=== PATIENT | female | born 1960 | race African-American/Black ===

== ENCOUNTER → 2016-07-19 | Outpatient (CLI) | payer SELFPAY ==
[~2016-07-19] MED LIST: Combivent IH; ERYTHROMYC1 APPLICAT RIGHT EYE; FLEXERIL5 MG PO; HYDROCODON-ACE1 EAC7 PO; MOTRIN600 MG PO; NOHOMEMEDS; Prevacid PO; Questran PO; Symbicort 160-4.5 mc IH
== END | disposition home or self-care (01) ==
LOC: NUC 09:11
DX: R94.31 Abnormal electrocardiogram [ECG] [EKG] (principal); R07.9 Chest pain, unspecified
CPT/HCPCS: 78452; 78999; 93017; A9500

== ENCOUNTER → 2016-09-13 | Outpatient (CLI) | payer SELFPAY | END | disposition home or self-care (01) | LOC: RAD 11:42 | DX: S63.102A Unspecified subluxation of left thumb, initial encounter (principal); M19.042 Primary osteoarthritis, left hand | CPT/HCPCS: 73130 ==

== ENCOUNTER → 2016-12-04 | Outpatient (CLI) | payer SELFPAY | END | disposition home or self-care (01) | LOC: RAD 12:31 | DX: J98.4 Other disorders of lung (principal) | CPT/HCPCS: 71250 ==

== ENCOUNTER 2017-04-08 19:59 | Emergency (ER) | payer OTHER ==
[~2017-04-08] VITALS: Ht 160 cm; Wt 55.0 kg
[2017-04-08 21:42] LABS: EOSINOPHIL (%) 3.9 % (0-5); EOSINOPHIL COUNT 0.2 K/uL (0-0.3); HEMATOCRIT 38.8 % (36.0-46.0); IMMATURE GRANULOCYTE (%) 0.2 % (0.0-0.7); INSTRUMENT ABS NEUTROPHIL CT 2.6 K/uL; MCH 31.4 PG (29.0-34.0); MCV 92.2 FL (83-99); MEAN PLAT.VOLUME 9.1 uM^3 (9.5-12.4); MONOCYTE (%) 13.2 % (3-12); MONOCYTE COUNT 0.6 K/uL (0-0.8); NEUTROPHIL (%) 59.1 % (45-76); NEUTROPHIL COUNT 2.6 K/uL (1.8-6.4); PLATELET COUNT 221 K/uL (156-360); RBC DIS.WIDTH-CV 12.6 % (11.8-14.6); RBC DIS.WIDTH-SD 43.1 % (39-53); RED BLOOD COUNT 4.21 M/uL (3.80-5.20); WHITE BLOOD COUNT 4.3 K/uL (4.1-10.2)
[2017-04-08 22:00] LABS: ALKALINE PHOSPHATASE 61 IU/L (3-129); ANION GAP 9 MEQ/L (2-14); CHLORIDE 108 MEQ/L (99-109); GFR ESTIMATE (CALCULATED) > 59 mL/min/; GLUCOSE 104 mg/dL (70-99); POTASSIUM 3.6 MEQ/L (3.7-5.4); SAMPLE HEMOLYSIS CHECK 0; SAMPLE ICTERIC CHECK 0; SAMPLE LIPEMIA CHECK 0; SODIUM 143 MEQ/L (136-147); TOTAL BILIRUBIN 0.3 MG/DL (0.0-1.0); UREA NITROGEN (BUN) 18 mg/dL (9-23)
[2017-04-08] MEDS ORDERED: PREDNISONE20 MG PO (23:57)
[2017-04-09 00:12] VITALS: BP 114/80
[2017-04-09 00:34] LABS: ADD MIUA? YES; BILIRUBIN NEGATIVE; BLOOD NEGATIVE; COLOR YELLOW ((YELLOW)); GLUCOSE (STRIP) NEGATIVE; KETONES NEGATIVE; LEUKOCYTES MODERATE; NITRITE NEGATIVE; PROTEIN (STRIP) NEGATIVE; UROBILINOGEN 0.2 MG/DL (0.2-1.0)
[2017-04-09 00:39] LABS: BACTERIA NONE SEEN /HPF; EPITHELIAL CELLS 1+ /HPF; MUCUS TRACE /LPF; RED BLOOD CELLS 0-5 /HPF (0-5); UCUL ADDED? NO; WHITE BLOOD CELLS 0-5 /HPF (0-5)
[2017-04-09 00:52] LABS: SPECIFIC GRAVITY 1.065 (1.000-1.030)
== END 2017-04-09 00:15 | disposition home or self-care (01) ==
LOC: EME 19:59
PROVIDERS: Emergency Medicine Emergency Medical Services
DX: M51.26 Other intervertebral disc displacement, lumbar region (principal); M54.16 Radiculopathy, lumbar region; R10.84 Generalized abdominal pain; J44.9 Chronic obstructive pulmonary disease, unspecified; K21.9 Gastro-esophageal reflux disease without esophagitis; F17.200 Nicotine dependence, unspecified, uncomplicated
CPT/HCPCS: 72131; 74177; 80053; 81003; 85025; 99281; 99285; J2270

== ENCOUNTER 2017-11-02 16:23 | Emergency (ER) | payer OTHER ==
[~2017-11-02] VITALS: Ht 157.5 cm; Wt 56.1 kg
[~2017-11-02 16:23] MED LIST changes: +PREDNISONE20 MG PO
[2017-11-02 17:40] LABS: HEMATOCRIT 38.2 % (36.0-46.0); HEMOGLOBIN 13.1 G/DL (11.9-15.5); MCHC 34.3 G/DL (30.0-36.0); MCV 93.2 FL (83-99); PLATELET COUNT 236 K/uL (156-360); RBC DIS.WIDTH-CV 12.6 % (11.8-14.6); RBC DIS.WIDTH-SD 43.2 % (39-53); WHITE BLOOD COUNT 5.1 K/uL (4.1-10.2)
[2017-11-02 17:54] LABS: CHLORIDE 110 mEq/L (99-109); POTASSIUM 3.8 mEq/L (3.7-5.4); SODIUM 143 mEq/L (136-147)
[2017-11-02 17:56] LABS: GLUCOSE 91 mg/dL (70-99); TOTAL PROTEIN 6.9 g/dL (6.4-8.3)
[2017-11-02 17:58] LABS: TOTAL BILIRUBIN 0.3 mg/dL (0.0-1.0)
[2017-11-02 18:00] LABS: ALKALINE PHOSPHATASE 89 IU/L (3-129); CREATININE 0.8 mg/dL (0.6-1.3); GFR ESTIMATE (CALCULATED) > 59 mL/min/
[2017-11-02 18:01] LABS: TROP-I INTERPRETATION NEGATIVE; TROPONIN-I < 0.01 ng/mL (0.0-0.30); UREA NITROGEN (BUN) 8 mg/dL (9-23)
[2017-11-02 18:02] LABS: AST (GOT) 19 IU/L (2-34)
[2017-11-02 18:03] LABS: ALT (GPT) 17 IU/L (3-49); LIPASE 20 U/L (1.0-51.0)
[2017-11-02] MEDS ORDERED: MOBIC7.5 MG PO (18:23)
[2017-11-02] MEDS ORDERED: FLEXERIL10 MG PO (18:23)
[2017-11-02 18:40] VITALS: BP 134/94
== END 2017-11-02 18:57 | disposition home or self-care (01) ==
LOC: EME 16:23
PROVIDERS: Nurse Practitioner Family
DX: M79.631 Pain in right forearm (principal); M25.511 Pain in right shoulder; M70.821 Other soft tissue disorders related to use, overuse and pressure, right upper arm; M79.89 Other specified soft tissue disorders; R94.31 Abnormal electrocardiogram [ECG] [EKG]; J44.9 Chronic obstructive pulmonary disease, unspecified; F10.20 Alcohol dependence, uncomplicated; F17.210 Nicotine dependence, cigarettes, uncomplicated
CPT/HCPCS: 71046; 80053; 83690; 84484; 85027; 93005; 99281; 99283